=== PATIENT | male | born 1980 | race Caucasian/White ===

== ENCOUNTER 2017-10-22 19:48 | Emergency (ER) | payer OTHER ==
[~2017-10-22] VITALS: Ht 172.7 cm; Wt 77.1 kg
[2017-10-22] MEDS ORDERED: Ketorolac 30mg Inj IV ONE (20:15)
[2017-10-22] MEDS ORDERED: Morphine Sulfate 4mg/ml Inj IVP ONE ×2 (20:15→21:30)
[2017-10-22 20:25] LABS: BASOPHILS % (AUTO) 0.8 % (0.0-2.0); EOSINOPHILS % (AUTO) 1.4 % (0.0-3.0); HEMATOCRIT 45.4 % (42.0-52.0); HEMOGLOBIN 15.2 G/DL (14.2-18.0); LYMPHOCYTES % (AUTO) 42.8 % (20.0-45.0); MEAN CORPUSCULAR VOLUME 88 FL (80-99); MONOCYTES % (AUTO) 6.5 % (1.0-10.0); NEUTROPHILS % (AUTO) 48.6 % (45.0-75.0); PLATELET COUNT 279 K/UL (150-450); RED BLOOD COUNT 5.15 M/UL (4.70-6.10); RED CELL DISTRIBUTION WIDTH 11.4 % (11.6-14.8); WHITE BLOOD COUNT 10.4 K/UL (4.8-10.8)
[2017-10-22 20:26] LABS: ANION GAP 10 mmol/L (5-15); BLOOD UREA NITROGEN 13 mg/dL (7-18); CALCIUM 9.6 MG/DL (8.5-10.1); CARBON DIOXIDE 27 MMOL/L (21-32); CHLORIDE 104 MMOL/L (98-107); POTASSIUM 3.4 MMOL/L (3.5-5.1); SODIUM 141 MMOL/L (136-145)
[2017-10-22 20:31] LABS: ALANINE AMINOTRANSFERASE 40 U/L (12-78); ALBUMIN 4.5 G/DL (3.4-5.0); ALBUMIN/GLOBULIN RATIO 1.4 (1.0-2.7); ALKALINE PHOSPHATASE 70 U/L (46-116); ASPARTATE AMINO TRANSFERASE 23 U/L (15-37); BILIRUBIN,TOTAL 0.4 MG/DL (0.2-1.0)
[2017-10-22 21:14] VITALS: BP 130/61
--- NOTE | 2017-10-22 21:45 | Emergency Room Report ---
History of Present Illness General Chief Complaint: Abdominal Pain Source: Patient Present Illness HPI 37-year-old male presents ED complaining of abdominal pain. Started tonight approximately one hour prior to arrival. Localized right lower quadrant. 10 out of 10, sharp, nonradiating. Denies fevers or chills. Notes nausea. Denies vomiting. Denies diarrhea. No other aggravating relieving factors. Denies any other associated symptoms Allergies: Coded Allergies: No Known Allergies (Unverified , 10/22/17) Patient History Past Medical History: none Past Surgical History: none Pertinent Family History: none Social History: Denies: smoking, alcohol use, drug use Immunizations: UTD Reviewed Nursing Documentation: PMH: Agreed, PSxH: Agreed Nursing Documentation-PMH Past Medical History: No Stated History Review of Systems All Other Systems: negative except mentioned in HPI Physical Exam Vital Signs Date Time Temp Pulse Resp B/P (MAP) Pulse Ox O2 Delivery O2 Flow Rate FiO2 10/22/17 19:51 97.5 55 16 112/73 99 Room Air Sp02 EP Interpretation: reviewed, normal General Appearance: alert, GCS 15, non-toxic, mild distress ENT: normal ENT inspection Neck: normal inspection Respiratory: chest non-tender, lungs clear, normal breath sounds, speaking full sentences Cardiovascular #1: regular rate, rhythm, no edema Gastrointestinal: normal bowel sounds, soft, non-distended, no guarding, no rebound, tenderness - RLQ Rectal: deferred Genitourinary: no CVA tenderness Musculoskeletal: normal inspection Neurologic: alert, oriented x3, responsive, motor strength/tone normal, sensory intact, speech normal Psychiatric: normal inspection Skin: normal inspection Lymphatic: normal inspection Medical Decision Making Labs Test 10/22/17 20:00 White Blood Count 10.4 K/UL (4.8-10.8) Red Blood Count 5.15 M/UL (4.70-6.10) Hemoglobin 15.2 G/DL (14.2-18.0) Hematocrit 45.4 % (42.0-52.0) Mean Corpuscular Volume 88 FL (80-99) Mean Corpuscular Hemoglobin 29.5 PG (27.0-31.0) Mean Corpuscular Hemoglobin Concent 33.5 G/DL (32.0-36.0) Red Cell Distribution Width 11.4 % (11.6-14.8) Platelet Count 279 K/UL (150-450) Mean Platelet Volume 7.7 FL (6.5-10.1) Neutrophils (%) (Auto) 48.6 % (45.0-75.0) Lymphocytes (%) (Auto) 42.8 % (20.0-45.0) Monocytes (%) (Auto) 6.5 % (1.0-10.0) Eosinophils (%) (Auto) 1.4 % (0.0-3.0) Basophils (%) (Auto) 0.8 % (0.0-2.0) Sodium Level 141 MMOL/L (136-145) Potassium Level 3.4 MMOL/L (3.5-5.1) Chloride Level 104 MMOL/L (98-107) Carbon Dioxide Level 27 MMOL/L (21-32) Anion Gap 10 mmol/L (5-15) Blood Urea Nitrogen 13 mg/dL (7-18) Creatinine 1.0 MG/DL (0.55-1.30) Estimat Glomerular Filtration Rate > 60 mL/min (>60) Glucose Level 135 MG/DL (74-106) Calcium Level 9.6 MG/DL (8.5-10.1) Total Bilirubin 0.4 MG/DL (0.2-1.0) Aspartate Amino Transf (AST/SGOT) 23 U/L (15-37) Alanine Aminotransferase (ALT/SGPT) 40 U/L (12-78) Alkaline Phosphatase 70 U/L (46-116) Total Protein 7.8 G/DL (6.4-8.2) Albumin 4.5 G/DL (3.4-5.0) Globulin 3.3 g/dL Albumin/Globulin Ratio 1.4 (1.0-2.7) Lipase 219 U/L (73-393) Last Vital Signs Date Time Temp Pulse Resp B/P (MAP) Pulse Ox O2 Delivery O2 Flow Rate FiO2 10/22/17 21:14 98.0 62 12 130/61 100 Room Air Status: improved Referrals: [facility],REFERRING (PCP) EVETTE HELTON M.D. Oct 22, 2017 21:45
[2017-10-22] MEDS ORDERED: TAMSULOSIN HCL0.4 MG ORAL (22:01)
[2017-10-22] MEDS ORDERED: IBUPROFEN600 MG ORAL (22:01)
[2017-10-22] MEDS ORDERED: NORCO 5-325 TA1 EACH ORAL (22:01)
[2017-10-22] MEDS ORDERED: ZOFRAN ODT4 MG ORAL (22:01)
[2017-10-22 22:14] VITALS: BP 127/75
[2017-10-22 22:15] VITALS: BP 130/61
--- NOTE | 2017-10-23 11:47 | Diagnostic Imaging Report ---
Indication: Abdominal pain Technique: CT of the abdomen and pelvis utilizing automated exposure control with intravenous contrast. Venous scanning performed. CT dose: Total DLP 711.63 mGycm; CTDI vol 13.41 mGy Comparison: None Findings: Image lower lungs are clear. Heart size is within normal limits. Liver normal in size and contour. Gallbladder unremarkable in appearance. Hepatic veins and portal veins appear patent. No focal liver lesion appreciated on this single phase study. No biliary ductal dilatation. Spleen, adrenal glands and pancreas are unremarkable. There is a 2 mm stone in the proximal right ureter (series 5 image #27). There is mild right-sided hydronephrosis. There is a 2 mm stone in the midpole of the left kidney (series 3 image #32). There is no left-sided hydronephrosis. A simple renal cyst is noted in the lower pole the left kidney. No bladder stones identified. Central calcifications noted in the prostate. There is no free intraperitoneal air. No evidence of bowel obstruction. Appendix is normal. No ascites. There is slight haziness in the upper mediastinum with small mesenteric lymph nodes. These findings can be seen in mesenteric panniculitis. Abdominal aorta is normal in caliber. No acute osseous abnormality seen. IMPRESSION: 2 mm stone in the right proximal ureter with mild right-sided hydronephrosis. 2 mm stone in the midpole of the left kidney. No evidence of hydronephrosis on the left. Slight haziness of the abdominal mesentery with some prominent lymph nodes. Findings are nonspecific and may possibly related to mesenteric panniculitis. Clinical correlation recommended. Appendix is normal. This is slightly discrepant from the preliminary report. Findings of final report discussed with Dr. Ogden of the ER 11:40AM , 10/23/17. The CT scanner at [facility] is accredited by the [employer] and the scans are performed using protocols designed to limit radiation exposure to as low as reasonably achievable to attain images of sufficient resolution adequate for diagnostic evaluation.
== END 2017-10-22 22:15 | disposition home or self-care (01) ==
LOC: EMR 20:25
DX: R10.31 Right lower quadrant pain (principal); N13.2 Hydronephrosis with renal and ureteral calculous obstruction; N20.0 Calculus of kidney
CPT/HCPCS: 36415; 74177; 80053; 83690; 85025; 96361; 96374; 96375; 99284; J1885; J2270; Q9967